=== PATIENT | female | born 1995 | race Caucasian/White ===

== ENCOUNTER → 2020-11-07 | Outpatient (CLI) | payer OTHER ==
[~2020-11-07] MED LIST: NICO21PAT TD; PROP20TA PO; SERT-141 PO; SERT50TA29 PO
--- NOTE | 2020-11-08 19:08 | REP ---
INDICATION: PAIN IN LEFT LEG COMPARISON: None. TECHNIQUE: AP and lateral left tibia/fibula FINDINGS: The osseous structures and joint spaces are intact and normal. There is no evidence for acute fracture or dislocation. Surrounding soft tissues are unremarkable. No subcutaneous emphysema or radiodense foreign body. No significant abnormal calcifications or obvious swelling overlies the tibial tuberosity. IMPRESSION: Essentially normal examination. <Electronically signed by Joesph Persaud > 11/08/20 [id number]
== END ==
LOC: M RAD 16:48
PROVIDERS: ATTEND Nurse Practitioner Family
DX: M79.605 Pain in left leg (principal)

== ENCOUNTER 2021-02-24 03:12 | Emergency (ER) | payer OTHER ==
[~2021-02-24] VITALS: Ht 157.5 cm; Wt 127.3 kg
[2021-02-24 03:54] LABS: BASO % 0.2 % (0.0-1.0); EOS % 0.2 % (0.0-3.0); HEMATOCRIT 41.7 % (36.0-47.0); HEMOGLOBIN 12.7 g/dl (12.0-15.5); LYMPH # 1.7 10^3/uL (1.5-5.0); LYMPH % 34.1 % (24.0-44.0); MEAN CORPUSCULAR HEMOGLOBIN 25.6 pg (27.0-33.0); MEAN CORPUSCULAR HGB CONC 30.5 g/dl (32.0-36.5); MEAN CORPUSCULAR VOLUME 83.9 fl (80.0-96.0); MONO # 0.7 10^3/uL (0.0-0.8); MONO % 13.3 % (2.0-8.0); NEUTROPHILS # 2.6 10^3/uL (1.5-8.5); NEUTROPHILS % 52.2 % (36.0-66.0); PLATELET COUNT, AUTOMATED 395 10^3/uL (150-450); RED BLOOD COUNT 4.97 10^6/uL (4.00-5.40)
[2021-02-24 04:20] LABS: ALBUMIN 3.6 GM/DL (3.2-5.2); ALT/SGPT 39 U/L (12-78); BILIRUBIN,DIRECT 0.1 MG/DL (0.0-0.2); BILIRUBIN,TOTAL 0.2 MG/DL (0.2-1.0); BLOOD UREA NITROGEN 7 MG/DL (7-18); CALCIUM LEVEL 8.9 MG/DL (8.5-10.1); CARBON DIOXIDE LEVEL 25 MEQ/L (21-32); CHLORIDE LEVEL 107 MEQ/L (98-107); CREATININE FOR GFR 0.58 MG/DL (0.55-1.30); GLOMERULAR FILTRATION RATE > 60.0 (>60); GLUCOSE, FASTING 91 MG/DL (70-100); LIPASE 44 U/L (73-393); POTASSIUM SERUM 3.5 MEQ/L (3.5-5.1); SODIUM LEVEL 139 MEQ/L (136-145); TOTAL PROTEIN 7.6 GM/DL (6.4-8.2)
[2021-02-24 04:46] LABS: RSV AMPLIFICATION NEGATIVE (NEGATIVE)
[2021-02-24] MEDS ORDERED: ONDANSETRON 4MG/2ML VIAL IV ONE (09:00)
[2021-02-24] MEDS ORDERED: NS 1,000 ML IV ONE (09:00)
[2021-02-24 10:03] LABS: HCG, SERUM QUALITATIVE NEGATIVE (NEGATIVE)
[2021-02-24 10:28] LABS: C REACTIVE PROTEIN QUANTITATIV 0.55 MG/DL (0.00-0.30); FERRITIN 54 NG/ML (8-252); LDH LACTATE DEHYDROGENASE 300 U/L (84-246); MAGNESIUM LEVEL 2.4 MG/DL (1.8-2.4)
[2021-02-24 10:31] LABS: INR 1.03; PROTHROMBIN TIME 13.9 SECONDS (12.7-14.5)
[2021-02-24 10:32] LABS: PARTIAL THROMBOPLASTIN TIME 33.3 SECONDS (25.9-37.0)
--- NOTE | 2021-02-24 10:45 | REP ---
INDICATION: abd pain, not passing gas, covid pos COMPARISON: None. TECHNIQUE: Upright view of the chest with supine and upright views of the abdomen and pelvis. FINDINGS: Frontal upright view of the chest demonstrates no acute cardiopulmonary process or free air below the diaphragm to suspect pneumoperitoneum. Supine and upright views of the abdomen and pelvis demonstrate nonspecific bowel gas pattern without obstruction or perforation. No organomegaly. No abnormal calcifications. Skeletal structures normal for age. IMPRESSION: Nonspecific bowel gas pattern. Frontal view of the chest appears normal. <Electronically signed by Joesph Persaud > 02/24/21 [id number]
[2021-02-24 12:57] VITALS: BP 139/80
== END 2021-02-24 13:12 | disposition home or self-care (01) ==
LOC: EDBD 03:12 → M ED 03:12
DX: U07.1 COVID-19 (principal); Z91.018 Allergy to other foods
CPT/HCPCS: 74021; 80048; 80076; 81001; 82728; 83605; 83615; 83690; 83735; 84145; 84703; 85025; 85384; 85610; 85730; 86140; 87040; 87077; 87631; 96361; 96374; 99284; J2405